=== PATIENT | male | born 1940 | race Caucasian/White ===

== ENCOUNTER 2016-12-07 17:57 | Emergency (ER) | payer OTHER, MEDICARE ==
[2016-12-07] MEDS ORDERED: Sodium Chloride 0.9% 1,000 ML PRIMARY IV ONE ×2 (18:28→20:20)
[2016-12-07] MEDS ORDERED: MORPHINE SULFATE 4 MG/1 ML IVP ONE (18:29)
[2016-12-07] MEDS ORDERED: ONDANSETRON 4 MG/2 ML VIAL IVP ONE (18:29)
--- NOTE | 2016-12-07 18:54 | EKG ---
[address] [address] Measurements Intervals Fults Rate: 60 P: 88 NC: 150 QRS: 39 QRSD: 94 T: 95 QT: 431 QTc: 432 Interpretive Statements SINUS RHYTHM NONSPECIFIC T-WAVE ABNORMALITY No previous ECG available for comparison Electronically Signed On 12-08-16 08:48:07 MDT by Ngiha Larsen [email or web address], [id number]
--- NOTE | 2016-12-07 19:00 | PDOC ---
Abdomen/Flank HPI - General Chief Complaint: Abdomen Pain Stated Complaint: ABDOMINAL PAIN Date Seen by Provider: 12/07/16 Time Seen by Provider: 18:56 Source: POSITIVE: Patient, Spouse Exam Limitations: POSITIVE: No limitations Nurse's Notes Reviewed & Considered: Yes - History of Present Illness Body Location Affected: REPORTS: Abdomen Timing: REPORTS: Abrupt Duration: <24 hours Severity: Moderate Quality: REPORTS: Cramping Abdominal Pain Onset Location: REPORTS: Generalized abdomen Abdominal Pain Radiation: REPORTS: LLQ Context: REPORTS: Sleep Modifying Factors: improves with: Vomiting Associated Symptoms: REPORTS: Diaphoresis, Nausea, Vomiting, Diarrhea Similar Symptoms Previously: No Recent Care Received: REPORTS: Denies Any Prior Injuries Related to Current Complaint?: No - Patient Home Medications Home Medications: Home Medications Albuterol Sulfate [Proair Hfa] 1 puff INH Q4-6H puff 12/07/16 Albuterol Sulfate [Ventolin Hfa] 1 - 2 puff INH Q4-6H puff 12/07/16 Albuterol/Ipratropium Inhaler [Combivent Respimat Inhaler] 1 puff INH QID puff 12/07/16 Amlodipine Besylate 1 tab PO DAILY tab 12/07/16 Aspirin 81 mg PO DAILY tab 12/07/16 Fluticasone/Salmeterol [Advair Hfa] 2 puff INH BID puff 12/07/16 Isosorbide Mononitrate 10 mg PO BID tab 12/07/16 Metoprolol Tartrate 1 tab PO BID tab 12/07/16 Omeprazole 1 cap PO DAILY cap 12/07/16 Pravastatin Sodium 1 tab PO DAILY tab 12/07/16 - Patient Allergies Allergies/Adverse Reactions: Allergies Allergy/AdvReac Type Severity Reaction Status Date / Time codeine Allergy Unverified 12/07/16 17:07 ROS - Limitations ROS Limitations: No Limitations Constitution: REPORTS: Diaphoresis Cardiovascular: REPORTS: Denies Cardiac Symptoms Respiratory: REPORTS: Shortness Of Breath (hx of copd) Neurological: REPORTS: Denies Neuro Symptoms Gastrointestinal: REPORTS: Abdominal Pain, Nausea, Vomitting, Diarrhea Endocrine: REPORTS: Denies Symptoms Musculoskeletal: REPORTS: Denies MS Symptoms Genitourinary: REPORTS: Denies Symptoms Eyes: REPORTS: Denies Symptoms ENT: REPORTS: Denies Symptoms Skin: REPORTS: Denies Skin Symptoms Lympathic: REPORTS: Denies Lympathic Symptoms Immunologic: POSITIVE: Denies Symptoms Psychiatric: POSITIVE: Denies Psych Symptoms Abdominal/Flank Pain PE - General Appearance General Appearance: POSITIVE: Alert, Cooperative, No Acute Distress, No Evidence of Trauma - HEENT HEENT: POSITIVE: Head Inspection Nml, Eyes Inspection Nml, Ears Inspection Nml, Nose Inspection Nml, Oral/Dental Inspect. Nml, Pharynx Inspect. Nml, PERRL, EOMI - Neck Neck: POSITIVE: Normal Inspection, No Apparent Injury - Respiratory Respiratory: POSITIVE: No Respiratory Distress, Breath Sounds Normal, Chest Non- Tender - Cardiovascular Cardiovascular: POSITIVE: Regular Rate and Rhythm, Heart Sounds Normal - Chest Chest: POSITIVE: Non Tender - Abdomen Abdomen: Soft: (All Quadrants), Normal Bowel Sounds: (All Quadrants), No Splenomegaly: (All Quadrants), No Hepatomegaly: (All Quadrants), No Rebound: ( All Quadrants), No Palpable Pulse: (All Quadrants), No Palpabale Mass: (All Quadrants), No Distention: (All Quadrants), No Rigidity: (All Quadrants), Tenderness Noted: (LLQ), Guarding: (LLQ) Abdomen Progress - Results Reviewed by me Xrays/CTs/US Reviewed by me: Yes Discussed with Radiologist: Yes Lab Results Reviewed: Yes Lab Results:: Laboratory Results 12/07/16 12/07/16 Range/Units 18:15 20:10 WBC 5.94 (4.8-10.8) 10^3/uL RBC 5.25 (4.70-6.10) 10^6/uL Hgb 15.6 (14.0-18.0) g/dL Hct 46.2 (42.0-52.0) % MCV 88.0 (80-90) FL MCH 29.7 (27-31) PG MCHC 33.8 (33-37) g/dL RDW Std Deviation 47.2 (39-50) fL RDW Coeff of Caleb 14.8 H (11.5-14.5) % Plt Count 192 (140-350) 10*3/uL MPV 9.8 (7.4-12.2) FL Immature Gran % (Auto) 0.5 (0-5) % Neut % (Auto) 67.7 (50-80) % Lymph % (Auto) 15.7 (10-50) % [place] % (Auto) 12.8 (5-15) % Eos % (Auto) 1.3 (0-8) % Baso % (Auto) 2.0 H (0-1) % Immature Gran # (Auto) 0.03 10*3/UL Neut # (Auto) 4.02 10*3/UL Lymph # (Auto) 0.93 10*3/uL [place] # (Auto) 0.76 (0.3-0.8) 10*3/UL Eos # (Auto) 0.08 10*3/UL Baso # (Auto) 0.12 10*3/UL WBC Morphology Comment Normal morphology (NORM) Plt Morphology Comment Normal morphology (NORM) RBC Morph Comment Normal morphology (NORM) Sodium 135 (135-145) meq/L Potassium 4.0 (3.8-5.2) meq/L Chloride 104 (98-112) meq/L Carbon Dioxide 22 L (23-33) meq/L Anion Gap 9 (5-20) BUN 18 (7-22) mg/dL Creatinine 0.9 (0.70-1.50) mg/dL Estimated GFR (>60 ml/min/1.73m(2)) BUN/Creatinine Ratio 20.00 (6-20) Glucose 96 (78-110) mg/dL Calculated Osmolality 281.0 (267-292) mOsm/kg Calcium 9.8 (8.7-10.7) mg/dL Magnesium 1.8 (1.6-2.4) mg/dL Total Bilirubin 1.7 H (0.3-1.2) mg/dL AST 44 (21-57) IU/L ALT 36 (21-72) IU/L Alkaline Phosphatase 67 (38-126) IU/L C-Reactive Protein 0.8 (0.0-0.9) mg/dL Total Protein 7.1 (6.1-8.0) g/dL Albumin 4.0 (3.5-4.8) g/dL Globulin 3.1 (2.50-4.10) g/dL Albumin/Globulin Ratio 1.20 L (1.3-2.0) mg/g Ur Collection Type Voided specimen Urine Color Yellow Urine Clarity Clear (CLEAR) Urine pH 5.0 (5.0-8.5) Ur Specific [place] <=1.005 (1.005-1.030) Urine Protein Negative (NEG) mg/dl Urine Glucose (UA) Negative (NEG) mg/dL Urine Ketones Negative (NEG) Urine Occult Blood Moderate H (NEG) Urine Nitrate Negative (NEG) Urine Bilirubin Negative (NEG) Urine Urobilinogen 0.2 (0.2) EU/dL Ur Leukocyte Esterase Negative (NEG) Urine RBC 10-15 (NONE) /hpf Urine WBC None (NONE) Ur Squamous Epith Cells None (NONE) Ur Renal Epithelial Cell None (NONE) Urine Crystals None Urine Bacteria None (NONE) Urine Casts None (NONE) Urine Mucus None (NONE) Urine Trichomonas None (NONE) Urine Yeast None (NONE) Ur Culture Indicated? Culture not set EKG Interpreted/Reviewed By Me:: Yes EKG Interpretation:: POSITIVE: Normal Sinus Rhythm - Patient's Progress Pain Medication Addressed: POSITIVE: Yes Re-examine Time: 20:54 Status: POSITIVE: Improved MDM / ED Course: Patient was examined, an IV started, blood drawn and sent to the lab for studies , radiographic examination and EKG were obtained. Findings: CBC, CMP, urinalysis are unremarkable. Bilirubin is slightly elevated 1.7. CT scan of his abdomen and pelvis shows no acute intra-abdominal or intrapelvic abnormalities. Urinalysis negative for bacteria, positive for microscopic blood. Assessment: Abdominal pain with nausea vomiting and diarrhea, probable viral gastroenteritis. Plan: Discharge home with tramadol dispensed, tramadol prescribed, Zofran dispensed, Zofran prescribed, instructions for clear liquids and advance diet as tolerated, follow-up with [facility] care physician this week. - Consult Counseled: POSITIVE: Patient, Family, RE: Lab Results, RE: Radiology Results, RE : DX, RE: Need for F/U - CP/AMI Quality Measure Initiative: CP/AMI: POSITIVE: EKG Patient Care Time - Estimated PCT Patient Care Time (In Minutes): 30 Vital Signs - Recent Vital Signs Vital Signs: Vital Signs (Last 8 hours) Temp Pulse Resp BP Pulse Ox 12/07/16 18:05 97.2 F 77 18 167/78 97 - VS Reviewed Vital Signs Reviewed: Yes Discharge Clinical Impression: Abdominal pain, Nausea and vomiting, Diarrhea Discharge Disposition: Discharged to Home Condition: Fair Patient Instructions Given at Discharge: Acute Abdominal Pain (ED), Acute Nausea and Vomiting (ED), Loperamide (By mouth), Acute Diarrhea (ED)
[2016-12-07 19:01] LABS: BASOPHILS # (AUTO) 0.12 10*3/UL; EOSINOPHILS # (AUTO) 0.08 10*3/UL; EOSINOPHILS % (AUTO) 1.3 % (0-8); HEMATOCRIT 46.2 % (42.0-52.0); HEMOGLOBIN 15.6 g/dL (14.0-18.0); LYMPHOCYTES # (AUTO) 0.93 10*3/uL; MEAN CORPUSCULAR HEMOGLOBIN 29.7 PG (27-31); MEAN CORPUSCULAR HGB CONC 33.8 g/dL (33-37); MEAN PLATELET VOLUME 9.8 FL (7.4-12.2); MONOCYTES # (AUTO) 0.76 10*3/UL (0.3-0.8); MONOCYTES % (AUTO) 12.8 % (5-15); NEUTROPHILS # (AUTO) 4.02 10*3/UL; NEUTROPHILS % (AUTO) 67.7 % (50-80); RED BLOOD COUNT 5.25 10^6/uL (4.70-6.10)
[2016-12-07 19:03] LABS: PLATELET MORPHOLOGY COMMENT NORMAL MORPHOLOGY (NORM); RBC MORPHOLOGY COMMENT NORMAL MORPHOLOGY (NORM); WBC MORPHOLOGY COMMENT NORMAL MORPHOLOGY (NORM)
[2016-12-07 19:10] LABS: C-REACTIVE PROTEIN 0.8 mg/dL (0.0-0.9); CALCIUM 9.8 mg/dL (8.7-10.7); MAGNESIUM 1.8 mg/dL (1.6-2.4)
[2016-12-07 20:08] VITALS: RESP 18; TEMP 97.2
[2016-12-07 20:13] LABS: BILIRUBIN,URINE NEGATIVE (NEG); CLARITY,URINE CLEAR (CLEAR); COLOR,URINE YELLOW; GLUCOSE, URINE (UA) NEGATIVE (NEG); NITRATE,URINE NEGATIVE (NEG); OCCULT BLOOD,URINE MODERATE (NEG); PROTEIN,URINE NEGATIVE (NEG); UROBILINOGEN,URINE 0.2 EU/dL (0.2)
[2016-12-07 20:15] LABS: URINE SAMPLE TYPE VOIDED SPECIMEN
--- NOTE | 2016-12-07 20:28 | DI ---
CT ABDOMEN SCAN WITH IV CONTRAST, 12/07/2016 6:53 PM : Clinical History: Left lower quadrant pain. Previous Exam: None at this facility. Scans are performed from the lower lung bases through the liver and kidneys with IV contrast. 95 ml o f Isovue 300 was injected IV. There is no acute infiltrate or effusion in both lower lobes, but bullae are present indicating bullo us emphysema. The liver is normal. The patient is status post cholecystectomy and the common bile yoly t measures 6-7 mm. There is no abnormality of the spleen, pancreas, and adrenal glands. Both kidneys are normal in size, shape, position and contour. There is no hydronephrosis or hydroureter. No renal or ureteral calculi are present. There are no abnormal retrocrural or periaortic nodes. No ascites is present. READING: Normal CT abdomen scan. CT PELVIS SCAN WITH IV CONTRAST, 12/07/2016 6:53 PM: Clinical History: See above. Previous Exam: None at this facility. Scans are performed from just superior to the umbilicus to the symphysis pubis with IV contrast. This is the same bolus of contrast used for the CT scans of the abdomen. Scans through the lower abdomen and pelvis show no masses or abnormal fluid collections. There is no adenopathy. The appendix is not visualized and by history the patient is status post appendectomy. Th ere is no inflammatory mass either in the cecal tip or in the right lower quadrant. The small bowel a nd terminal ileum are normal. 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 The colon is normal and there is no evidence of colitis or acute diverticulitis. There is a midline hernia located inferior to the umbilicus through which only mesenteric fat has herniated. READIN. Normal CT scan of the pelvis. 2. There is a small midline abdominal hernia located just inferior to the umbilicus through which on ly mesenteric fat has herniated.
[2016-12-07] MEDS ORDERED: traMADol 50 MG TABLET PO SCH (21:00)
== END 2016-12-07 21:19 | disposition home or self-care (01) ==
LOC: ER 17:57
DX: R10.84 Generalized abdominal pain (principal); R11.2 Nausea with vomiting, unspecified; R19.7 Diarrhea, unspecified; R06.02 Shortness of breath; Z79.82 Long term (current) use of aspirin
CPT/HCPCS: 74177; 80053; 81001; 81003; 83735; 85025; 86140; 93005; 93010; 96361; 96374; 96375; 99283 ×2; J2270; J2405; J7030